=== PATIENT | male | born 1980 | race African-American/Black ===

== ENCOUNTER 2019-10-07 | Emergency (ER) | payer BC ==
[2019-10-07] MEDS ORDERED: BACTRIM DS1 TAB PO (18:34)
[2019-10-07] MEDS ORDERED: KEFLEX500 M1 PO (18:34)
[2019-10-07] MEDS ORDERED: LOTRIMIN AF JOCK1 % TOP (18:34)
--- NOTE | 2019-10-09 16:06 | NUR ---
Attempted to call pt to d/c cephalexin, no answer.
--- NOTE | 2019-10-10 10:27 | NUR ---
Attempted to reach pt for the second time to d/c cephalexin, no answer. Letter will be sent to pt's home stating change.
== END 2019-10-07 18:58 | disposition home or self-care (01) | DRG 603 ==
DX: L02.212 Cutaneous abscess of back [any part, except buttock and flank] (principal); B95.62 Methicillin resistant Staphylococcus aureus infection as the cause of diseases classified elsewhere; B35.6 Tinea cruris